=== PATIENT | female | born 1940 | race Caucasian/White ===

== ENCOUNTER 2022-10-01 00:11 | Emergency (ER) | payer MEDICARE, OTHER, SELFPAY ==
[2022-10-01 00:19] VITALS: BP 144/85; PULSE 104; TEMP 36.2; O2SAT 98
--- NOTE | 2022-10-01 00:32 | PC.NURSE ---
poison control contacted. updated on recommendations of poison control
--- NOTE | 2022-10-01 00:58 | ED.EYEPROB ---
HPI - Eye Problem General Chief complaint: Eye Problems Stated complaint: Laundry detergent in eyes Time Seen by Provider: 10/01/22 00:15 Source: patient and family History of Present Illness HPI Narrative: 81-year-old female presents to the emergency department 15 hours after she suffered a chemical injury to the eyes. Is the middle of the night and she reports that the pain is bothersome and she cannot sleep. She was doing laundry this morning and noted that to detergent pods got stuck together. She pulled the is apart, causing the contents to splash up into her eyes. She had immediate burning. Flushed with water. Has tried taking a little bit of Tylenol once with no significant improvement in her symptoms. She has been noticing watery eyes and runny nose ever since. No other signs of acute illness. Reports that she had gone to the dentist earlier today as well and was not experiencing any abnormal symptoms at that time. She did try some [id number]-[id number] refresh eyedrops and this seemed to make her burning worse. Vision seems blurry in cloudy at times. Is having a lot of mucus drainage. No prior history of contact use or eye surgery. No history of glaucoma or use of prescription eyedrops. She does frequently get dry eyes in use these lubricating eye drops a couple of times per day on average. She states that her past medical history is benign. No pertinent ocular history. Denies allergies. Denies long-term medications. Socially with no pertinent travel. ROS is notable for the generalized, HEENT, vision changes as above. Denies other skin or other concerns from the organ systems above. Related Data Home Medications Medication Instructions Recorded Confirmed No Known Home Medications 10/01/22 10/01/22 Allergies Allergy/AdvReac Type Severity Reaction Status Date / Time No Known Drug Allergies Allergy Verified 10/01/22 00:21 Exam Const: Vital Signs, click to edit/add: Vital Signs - 24 hr 10/01/22 00:19 Temperature 97.1 F L Pulse Rate [Pulse Oximeter] 104 H Blood Pressure [Ri ght Upper Arm] 144/85 H Pulse Oximetry 98 Oxygen Delivery Me thod Room Air Documenting provider has reviewed patient's vital signs: yes Other: Mild cognitive and memory impairment. Family is very helpful. HENMT: Common normals: normocephalic Head and scalp: normocephalic Other: Mild clear mucus rhinorrhea with no signs of nasal injury. Normal-appearing facial bones. Eye: Other: Conjunctiva are swollen and injected. Watery and mucoid drainage bilaterally, right greater than left. Pupils are equal round and reactive to light with normal extraocular movements. Does seem to have some improvement in vision when I clear away mucus. No obvious foreign body or globe deformity on initial exam. Resp: Common normals: no use of accessory muscles Effort & inspection: able to speak in complete sentences Neuro: Other: Normal speech, can move extremities with no difficulty. Psych: Attitude: engaged Other: Mild memory impairment but cooperative. Skin: Common normals: no rashes or lesions noted Narrative: No signs of skin injury. General skin exam: no rashes or lesions noted Course Vital Signs Vital signs: Initial Vital Signs Temperature 97.1 F L 10/01/22 00:19 Temperature Source Temporal Artery Scan 10/01/22 00:19 Pulse Rate 104 H 10/01/22 00:19 Blood Pressure 144/85 H 10/01/22 00:19 Blood Pressure Mean 104 10/01/22 00:19 Blood Pressure Position Sitting 10/01/22 00:19 Pulse Oximetry 98 10/01/22 00:19 Oxygen Delivery Method Room Air 10/01/22 00:19 Vital Signs Temperature 97.1 F L 10/01/22 00:19 Pulse Rate 104 H 10/01/22 00:19 Blood Pressure 144/85 H 10/01/22 00:19 Pulse Oximetry 98 10/01/22 00:19 Oxygen Delivery Method Room Air 10/01/22 00:19 Temperature 97.1 F L 10/01/22 00:19 Pulse Rate 104 H 10/01/22 00:19 Blood Pressure 144/85 H 10/01/22 00:19 Pulse Oximetry 98 10/01/22 00:19 Oxygen Delivery Method Room Air 10/01/22 00:19 MDM - Eye Problem MDM Narrative Medical decision making narrative: Procedure: Fluorescein staining. Two drops of tetracaine were inserted into each eye with fluorescent staining strip. This did lead to relief of her symptoms. The left eye is examined 1st. There does not appear to be any significant injury to the cornea. No further evidence of foreign body or other abnormality is seen. Attention is turned to the right eye. There is a lot of overlying mucus. This is cleaned out with Kleenex and gentle wiping away of a close lid which did remove this mucus. There does appear to be a mild corneal abrasion at around 5:00 a.m.. Eyes were copiously irrigated with saline flush with no further evidence of foreign body or debris. Erythromycin eye ointment is inserted in both eyes and patient is counseled on care. Poison control was contacted they recommend checking for corneal abrasion which has been done and appropriate management for follow-up. Counseled patient and family on findings. Suspicious for a mild corneal abrasion on right, cannot exclude deeper lesion. This will need follow-up with eye doctor. This is not 1 of those situations where I need to wake 1 up in the middle of the night as her injury was 15 hours ago and now can wait for the provider to open in the morning. Contact information provided for [facility]. Family states they will probably contact their primary eye doctor instead. This is fine with me. Counseled on use of Tylenol, ibuprofen as needed for discomfort, avoid bright lights. It is okay to use melatonin and/or Tylenol p.m. to help sleep. I do not think it is a good idea to give narcotic medication as she showing signs of some memory impairment. Counseled that the tetracaine eyedrops are not intended for lengthy use. Most of the time the injury does heal within a couple of days on its own. Avoid eye irritants like 3 fresh eyedrops, I cleansing wipes, etc.. Alarm symptoms reviewed. Family verbalizes they will call the eye doctor in the daylight hours. All questions answered. They are provided with the tube of erythromycin eye ointment to use at home for the next 3 days. Discharge Plan Discharge Clinical Impression: Corneal injury Patient Disposition: Home w/ Parent or Adult Condition: Stable Instructions: Corneal Abrasion (DC) Additional Instructions: As we discussed, the detergent has caused a mild burn injury to the cornea and inner eyelids. It does look like there is a specific area of injury at about 5:00 a.m. on the cornea. This is on the right eye. Unfortunately, these can be painful. Do not use any Visine, refresh or eye cleaning wipes for the next few days. This does need to be looked at by an eye doctor as well. Unfortunately, there is not 1 available at 1:00 a.m. in the [facility] emergency department. I recommend calling your eye doctor in the morning to see if you can get a same-day appointment. I recommend [facility] in [place]. They do save appointments for acute conditions like this typically. [phone] is their phone number. You are welcome to schedule with your own provider if you prefer. I have given you antibiotic ointment to help reduce the chance of infection and further eye injury. This will have some mild soothing effect as well. Unfortunately, the numbing eyedrops cannot be use on an ongoing basis. I am glad that you got some temporary relief from this. It is safe to use Tylenol, ibuprofen and any other medications that help alleviate some of the pain. Not being able to sleep due to pain can be distressing especially for older people. You may consider using melatonin and or Tylenol p.m. to help you sleep. The eyes will feel much better if you avoid light and keep your lids closed. You will likely require assistance tomorrow (later today) to care for your self. Use the erythromycin eye ointment every 3 hours while awake, 1/4-1/2 inch. It is often best to keep the medication in the Fridge as it makes it easier to squeeze and use. Plan to use this for 3 days unless directed to use longer by the eye doctor. I a.m. concerned about injury to the eye, if this is still apparent at your follow-up appointment, the eye doctor will further guide you through this management. Activity Level: Activity as Tolerated Discharge Diet: Regular Prescriptions: No Action No Known Home Medications Stand Alone Forms: [employer] Info Instructions
[2022-10-01] MEDS: TETRACAINE 0.5% OPHTH 2 DROP EYE-BOTH (01:00)
[2022-10-01] MEDS: ERYTHROMYCIN 1 GM TUBE 1 APPLIC EYE-BOTH (01:00)
== END 2022-10-01 01:27 | disposition home or self-care (01) ==
LOC: ED 01:12
PROVIDERS: Emergency Provider Family Medicine
DX: S05.92XA Unspecified injury of left eye and orbit, initial encounter (principal); S05.91XA Unspecified injury of right eye and orbit, initial encounter; T55.1X1A Toxic effect of detergents, accidental (unintentional), initial encounter
CPT/HCPCS: 65222; 99282; 99283

== ENCOUNTER 2023-11-23 19:08 | Outpatient (CLI) | payer MEDICARE, OTHER, SELFPAY | END 2023-11-23 19:09 | disposition home or self-care (01) | LOC: AMB 11-29 07:25 | PROVIDERS: Visit Provider Emergency Medicine | DX: S89.92XA Unspecified injury of left lower leg, initial encounter (principal); S09.90XA Unspecified injury of head, initial encounter; W18.30XA Fall on same level, unspecified, initial encounter; Y92.009 Unspecified place in unspecified non-institutional (private) residence as the place of occurrence of the external cause | CPT/HCPCS: A0425; A0427 ==